=== PATIENT | female | born 1960 | race African-American/Black ===

== ENCOUNTER 2022-02-10 12:46 | Inpatient (IN) | payer OTHER ==
[2022-02-10] MEDS ORDERED: MAGNESIUM HYDROX 2400MG/30ML ORAL SUSPENSION 30 ML CUP PO PRN (17:20)
[2022-02-10] MEDS ORDERED: MAGNESIUM CITRATE 300 ML BOTTLE PO PRN (17:20)
[2022-02-10] MEDS ORDERED: MAG HYDROX/AL HYDROX/SIMETH 30 ML UNIT-DOSE CUP PO PRN (17:20)
[2022-02-10] MEDS ORDERED: NICOTINE 10 MG CARTRIDGE (INHALER) IH PRN (17:20)
[2022-02-10] MEDS ORDERED: MENTHOL/PHENOL 1 EACH UD MM PRN (17:20)
[2022-02-10] MEDS ORDERED: BISMUTH SUBSALICYLATE 524 MG/30 ML PO PRN (17:20)
[2022-02-10] MEDS ORDERED: IBUPROFEN 400 MG TABLET (FP) PO PRN (17:20)
[2022-02-10] MEDS ORDERED: LOPERAMIDE HCL 2 MG CAPSULE PO PRN (17:20)
[2022-02-10] MEDS ORDERED: ACETAMINOPHEN 325 MG TABLET (FP) PO PRN ×2 (17:20)
[2022-02-10] MEDS ORDERED: NICOTINE POLACRILEX 2 MG GUM BUC PRN (17:24)
[2022-02-10] MEDS ORDERED: cloNIDine HCL 0.1 MG TABLET PO ONE (18:45)
[2022-02-10 18:49] VITALS: BMI 18.8
[2022-02-10] MEDS ORDERED: BUPRENORPHINE HCL 150 MCG FILM BC ONE (19:21)
[2022-02-10] MEDS ORDERED: BUPRENORPHINE HCL 75 MCG FILM BC ONE (19:21)
[2022-02-10] MEDS ORDERED: BUPRENORPHINE HCL 150 MCG, BUPRENORPHINE HCL 75 MCG BC ONE (20:00)
[2022-02-10] MEDS: hydrOXYzine PAMOATE 25 MG CAPSULE (FP) PO SCH ×2 (20:30→22:09)
[2022-02-10] MEDS ORDERED: cloNIDine HCL 0.1 MG TABLET PO PRN (21:19)
[2022-02-10] MEDS: diazePAM 5 MG TABLET PO SCH ×2 (22:05→22:06)
[2022-02-10] MEDS: THIAMINE HCL 100 MG TABLET (FP) PO SCH (22:08)
[2022-02-10] MEDS: MELATONIN 5 MG TABLETS PO SCH (22:08)
[2022-02-11] MEDS ORDERED: BUPRENORPHINE HCL 150 MCG FILM BC ONE ×2 (04:20→17:28)
[2022-02-11] MEDS ORDERED: BUPRENORPHINE HCL 75 MCG FILM BC ONE ×2 (04:21→17:29)
[2022-02-11] MEDS: diazePAM 5 MG TABLET PO SCH ×4 (05:50→23:13)
[2022-02-11] MEDS: hydrOXYzine PAMOATE 25 MG CAPSULE (FP) PO SCH ×5 (05:50→23:13)
[2022-02-11] MEDS: BUPRENORPHINE HCL 150 MCG, BUPRENORPHINE HCL 75 MCG BC SCH ×2 (05:50→18:00)
[2022-02-11] MEDS: PRENATAL VITAMINS W/ FOLIC ACID TABLET (FP) PO SCH (10:16)
[2022-02-11] MEDS: NICOTINE 14 MG/24 HOURS TOPICAL PATCH TD SCH (10:17)
[2022-02-11 10:48] LABS: HEMATOCRIT 39.7 % (32.4-45.2); HEMOGLOBIN 13.5 GM/dL (10.7-15.3); MCH 29.9 pg (25.7-33.7); MCHC 33.9 g/dl (32.0-36.0); MEAN CELL VOLUME 88.2 fl (80-96); MEAN PLT VOLUME 8.2 fl (7.5-11.1); PLATELET COUNT 303 10^3/uL (134-434); RDW 14.5 % (11.6-15.6); WHITE BLOOD COUNT 3.9 K/mm3 (4.0-10.0)
[2022-02-11 11:23] LABS: ALBUMIN 4.1 g/dl (3.4-5.0); CALCIUM 10.1 mg/dL (8.5-10.1)
[2022-02-11 11:24] LABS: BLOOD UREA NITROGEN 11.2 mg/dL (7-18)
[2022-02-11 11:28] LABS: BILIRUBIN,TOTAL 0.7 mg/dL (0.2-1)
[2022-02-11] MEDS: MELATONIN 5 MG TABLETS PO SCH (23:13)
[2022-02-11] MEDS: THIAMINE HCL 100 MG TABLET (FP) PO SCH (23:13)
[2022-02-12] MEDS: hydrOXYzine PAMOATE 25 MG CAPSULE (FP) PO SCH (05:09)
[2022-02-12] MEDS: diazePAM 5 MG TABLET PO SCH ×3 (05:10→22:35)
[2022-02-12] MEDS ORDERED: BUPRENORPHINE HCL 450 MCG FILM BC SCH (06:00)
[2022-02-12] MEDS: ONDANSETRON *ODT* 4 MG TABLET SL PRN ×2 (07:41→13:35)
[2022-02-12] MEDS: diazePAM 5 MG TABLET PO PRN ×2 (08:45→18:31)
[2022-02-12] MEDS ORDERED: cloNIDine HCL 0.1 MG TABLET PO PRN (09:06)
[2022-02-12] MEDS ORDERED: methaDONE HCL 10 MG TABLET (FOR DETOX USE ONLY) PO ONE ×3 (09:45→20:00)
[2022-02-12] MEDS: METHOCARBAMOL 500 MG TABLET PO PRN ×2 (10:50→18:31)
[2022-02-12] MEDS: PRENATAL VITAMINS W/ FOLIC ACID TABLET (FP) PO SCH (10:50)
[2022-02-12] MEDS: NICOTINE 14 MG/24 HOURS TOPICAL PATCH TD SCH (10:51)
[2022-02-12] MEDS: MELATONIN 5 MG TABLETS PO SCH (22:34)
[2022-02-12] MEDS: THIAMINE HCL 100 MG TABLET (FP) PO SCH (22:34)
[2022-02-13] MEDS ORDERED: BUPRENORPHINE/NALOXONE 4 MG/1 MG FILM PACKET SL SCH (06:00)
[2022-02-13] MEDS ORDERED: diazePAM 5 MG TABLET PO SCH (06:00)
[2022-02-13] MEDS ORDERED: methaDONE HCL 10 MG TABLET (FOR DETOX USE ONLY) ONE (09:38)
[2022-02-13 09:41] VITALS: BP 97/64; PULSE 92; TEMP 98
[2022-02-13] MEDS: PRENATAL VITAMINS W/ FOLIC ACID TABLET (FP) PO SCH (10:02)
[2022-02-13] MEDS: diazePAM 5 MG TABLET PO PRN (10:02)
[2022-02-13] MEDS: NICOTINE 14 MG/24 HOURS TOPICAL PATCH TD SCH (10:05)
[2022-02-14] MEDS ORDERED: BUPRENORPHINE/NALOXONE 8 MG/2 MG FILM PACKET SL ONE (06:00)
[2022-02-14] MEDS ORDERED: diazePAM 5 MG TABLET PO ONE (06:00)
[2022-02-14] MEDS ORDERED: methaDONE HCL 10 MG TABLET (FOR DETOX USE ONLY) PO ONE (10:00)
[2022-02-15] MEDS ORDERED: PENICILLIN G BENZATHINE 2,400,000 UNIT/4 ML PFS IM ONE (10:00)
[2022-02-16] MEDS ORDERED: methaDONE HCL 10 MG TABLET (FOR DETOX USE ONLY) PO ONE (10:00)
[2022-02-22] MEDS ORDERED: PENICILLIN G BENZATHINE 2,400,000 UNIT/4 ML PFS IM ONE (10:00)
== END 2022-02-13 12:17 | disposition left against medical advice (07) | DRG 770 ==
LOC: YASAS 12:46 → Y6N 17:30
PROVIDERS: ADMIT Allergy & Immunology; ATTEND Allergy & Immunology
PROC: HZ2ZZZZ Detoxification Services for Substance Abuse Treatment (ICD-10-PCS; principal; 2022-02-10)
DX: F11.23 Opioid dependence with withdrawal (principal); F10.230 Alcohol dependence with withdrawal, uncomplicated; F17.210 Nicotine dependence, cigarettes, uncomplicated; E03.9 Hypothyroidism, unspecified; E78.5 Hyperlipidemia, unspecified; I10 Essential (primary) hypertension; A53.0 Latent syphilis, unspecified as early or late; Z86.19 Personal history of other infectious and parasitic diseases; Z88.8 Allergy status to other drugs, medicaments and biological substances
CPT/HCPCS: 36415; 80053; 82962; 85027; 86593; 86780; 87811; 93005; 93010; C9803-CS; J0735; Q0162; U0003; U0005

== ENCOUNTER 2022-02-11 22:01 | Emergency (ER) | payer OTHER ==
[2022-02-11 23:11] VITALS: BP 138/80; PULSE 76; TEMP 98.8; BMI 17.2
[2022-02-11 23:44] LABS: BASO % 0.7 % (0-2.0); EOS % 4.2 % (0-4.5); HEMATOCRIT 38.2 % (32.4-45.2); LYMPH % 43.9 % (8-40); MCH 29.6 pg (25.7-33.7); MEAN PLT VOLUME 7.5 fl (7.5-11.1); MONO % 14.2 % (3.8-10.2); PLATELET COUNT 296 10^3/uL (134-434); RBC 4.39 M/mm3 (3.60-5.2); RDW 14.1 % (11.6-15.6); WHITE BLOOD COUNT 3.7 K/mm3 (4.0-10.0)
[2022-02-12 00:09] LABS: CALCIUM 9.8 mg/dL (8.5-10.1)
[2022-02-12 00:10] LABS: ALBUMIN 3.8 g/dl (3.4-5.0); BLOOD UREA NITROGEN 9.1 mg/dL (7-18)
[2022-02-12 00:13] LABS: CREATININE 0.9 mg/dL (0.55-1.3)
[2022-02-12 00:15] LABS: BILIRUBIN,TOTAL 0.6 mg/dL (0.2-1); TOT PROT 8.1 g/dl (6.4-8.2)
[2022-02-12] MEDS ORDERED: ONDANSETRON *ODT* 4 MG TABLET ONE (03:18)
[2022-02-12] MEDS ORDERED: ACETAMINOPHEN 325 MG TABLET (FP) ONE (03:18)
== END 2022-02-12 03:44 | disposition home or self-care (01) ==
LOC: JER 22:01
DX: R55 Syncope and collapse (principal)
CPT/HCPCS: 36415; 70450-TC; 71046-TC-FY; 80053; 82550; 82553; 84484; 85025; 93005; 93010; 99285-25